=== PATIENT | male | born 1940 | race Caucasian/White ===

== ENCOUNTER 2016-08-13 15:24 | Inpatient (IN) | payer MEDICARE ==
--- NOTE | ~2016-08-13 | IDS ---
Interim Discharge Summary [facility] [address] [place]. [address] NAME: GURPREET STEWART : 42 STATUS : ADM IN PAT#: [id number] AGE: 76 ADM/REG DATE : 08/13/16 MR#: [id number] REPORT SERV DATE: 08/19/16 DICTATED BY: RIZWAN LOCKHART DATE: 08/19/16 REPORT STATUS : Draft TRANSCRIBED BY: MODL DATE: 08/19/16 ADMISSION DATE: 08/13/2016 DISCHARGE DATE: CURRENT HOSPITAL DIAGNOSES: 1. Dizziness, weakness, and forgetfulness. 2. History of coronary artery disease, pacer placement, and hypertension. CONSULTATIONS: Dr. Nunn, Neurology. PROCEDURES: 1. CT scan of the brain done on the 08/13/2016 showing no acute pathology, no old films for comparison. Generalized atrophy in the posterior fossa and brainstem. No ventricular shift. Generalized moderate atrophy including the brainstem and posterior cerebral hemispheres. 2. Carotid ultrasound done on the 08/15/2016 showing right carotid category 2 disease, moderate to highly vulnerable plaque on the right. Right vertebra was not identified, may be occluded or congenitally undeveloped. Left carotid is category 1. 3. 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 4. Cervical MRI ubgy-dz-rdmoqjwb encroachment of the left neural foramina at C4-5, C5-6, and C6-7, which could demonstrate clinically as intermittent irritation to the left 5, 6, or 7 nerve root. Cord is intact. Brainstem intact. 5. Spinal LP done on 08/16/2016. 6. Echocardiogram done on the 08/15/2016 showing technically difficult study due to poor acoustic windows, decreased LV systolic function, EF of 42%, apical akinesis, normal right ventricular chamber size and systolic function. No significant evidence of valvular regurgitation or stenosis. CURRENT PHYSICAL FINDINGS AND HISTORY OF PRESENT ILLNESS: Please see dictated H and P by myself. In brief, the patient is a 76-year-old male who was brought in by family as he was having difficulty getting out of bed secondary to dizziness, weakness, and seemed to be having some xpso-uj-raewhyol progressive dementia. Initial vital signs: BP was 132/76, temperature was 98.6, and he has been afebrile during his hospital stay. Initial laboratory showed a BMP with a K of 3.2. Procalcitonin of 0.2. LFTs showed mild elevation AST 70, ALT 80, and alkaline phosphatase 130. B12 was 374. Troponin was normal. Folate was 7.8. TSH was 3.0. T4 was 11.2. CRP was 118, repeated on the 08/16/2016 was 117. RA was 40. BNP, ammonia, and A1c were within normal limits as was lactate. was less than 1 to 40. Sjogren's anti-SSA and SSB are pending. HIV was negative. LP showed a high protein count of 51.1, otherwise unremarkable. CBC at admit was unremarkable. Sedimentation rate was elevated initially at 84, repeated at 87. RPR was negative. Urinalysis was negative. Blood cultures on the 08/13/2016: One was growing Staph. Gluten is negative Staph, probable contaminant, the other was negative. CSF has no growth at three days, negative for cryptococcus. Interim Discharge Summary [address] [address] NAME: GURPREET STEWART : 42 STATUS : ADM IN [facility]#: [id number] AGE: 76 ADM/REG DATE : 08/13/16 MR#: [id number] REPORT SERV DATE: 08/19/16 DICTATED BY: RIZWAN LOCKHART DATE: 08/19/16 REPORT STATUS : Draft TRANSCRIBED BY: SOO DATE: 08/19/16 HOSPITAL COURSE: The patient was admitted with clinical symptoms and CT findings. He was placed on SCDs as he states he is very sensitive to anticoagulants. Neurology was consulted. The above mentioned labs and radiographic studies were ordered. He was initially noted to be somewhat orthostatics, so metoprolol was cut in half. Neurology wanted to proceed with MRI. Pacemaker was found to be MRI compatible, but MRI was delayed coordinating with Radiology and [employer] to place his pacer in safe mode. He had no significant change in his clinical symptoms during his hospital stay. PT and OT were requested and have been working with the patient. He was tried on a three-day course of Solu-Medrol 250 beginning on the 08/17/2016. His only other clinical complaint during his hospital stay was headache. Currently awaiting Dr. Nunn's recommendations from his MRI. We will continue PT. We will await the final on his lab work. Disposition is pending above. His carotid may need further investigation given the vulnerable plaque. TLF/MODL Rizwan Lockhart M.D. / [id number] CC: Rizwan Lockhart M.D. UNKNOWN
--- NOTE | ~2016-08-13 | HP ---
History And Physical [place] [id number] [facility] [place]. [address] NAME: GURPREET STEWART : 42 STATUS : ADM IN PAT#: [id number] AGE: 76 ADM/REG DATE : 08/13/16 MR#: [id number] REPORT SERV DATE: 08/13/16 DICTATED BY: RIZWAN LOCKHART DATE: 08/13/16 REPORT STATUS : Draft TRANSCRIBED BY: MODL DATE: 08/13/16 DATE OF ADMISSION: 08/13/2016 CHIEF COMPLAINT: Dizziness, weakness, forgetfulness, and shortness of breath. HISTORY OF PRESENT ILLNESS: The patient is a 76-year-old male, history as per the patient and his family. He has a past history significant for heart block, he underwent in 2014 a pacemaker placement. He states he otherwise is reasonably healthy. 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 He does not recall the last appointment that he has had. He has had several appointments with his PCP with complaints of dizziness and weakness, loss of appetite, and undetermined amount of weight loss. He states he has been given several "dizzy pills" which have not helped. He apparently on had worsening of his episode and family has not been able to get him out of bed since, so they brought him to the emergency department. They have noted that he seems to be more dizzy than weak. He is able to walk a certain distance and then seems to be unsteady in his feet like he is "drunk." He has had several falls related to this. His dizziness seems to be mostly when he tries to ambulate. He is noted to have Antivert on his medication list here, uncertain what other medicines he might have gotten. He has also complained of decreased appetite. He has also complained of diarrhea and cough. After the interview with the patient, his son did tell me that he has also been having periods of forgetfulness. He gives an example of having forgot how to put on a short the other day. He is uncertain how long this has been going on, and how severe it has been. He is currently denying chest pain, palpitations, or any distinct cardiac symptoms. PAST MEDICAL HISTORY: He has had a pacemaker placement, and he has had a history of hypertension, coronary artery disease, he states that five-vessel bypass in the past. PAST SURGICAL HISTORY: As noted above. CURRENT MEDICATIONS: Per pharmacy list, allopurinol 300 mg, Goody powder, Prozac 40 mg, hydrochlorothiazide 25 mg, Antivert 25 mg, Lopressor 25 mg b.i.d. ALLERGIES: TO STATINS, BLOOD THINNERS, AND UNKNOWN GOUT MEDICATION. FAMILY HISTORY: Both parents . Father from lung cancer. Mother from old age. SOCIAL HISTORY: He is a social drinker, pack per day smoker. REVIEW OF SYSTEMS: HEENT: As covered in HPI. PULMONARY: He has had some cough. No fevers or chills. CARDIAC: As covered in HPI. GI: Positive for diarrhea. Otherwise, his 14-point review of systems is negative. PHYSICAL EXAMINATION: History And Physical [address] [address] NAME: GURPREET STEWART : 42 STATUS : ADM IN [facility]#: [id number] AGE: 76 ADM/REG DATE : 08/13/16 MR#: [id number] REPORT SERV DATE: 08/13/16 DICTATED BY: RIZWAN LOCKHART DATE: 08/13/16 REPORT STATUS : Draft TRANSCRIBED BY: SOO DATE: 08/13/16 VITAL SIGNS: BP 132/76, temperature 98.6, pulse 82, respirations 28, sat 95%. GENERAL: He is awake, alert, oriented, pleasant, in no acute distress. HEENT: Normocephalic, atraumatic. Sclerae nonicteric. NECK: Supple. HEART: Regular rate and rhythm without significant murmurs, gallops, or rubs. LUNGS: Clear to auscultation without rhonchi, rales, or wheezes. ABDOMEN: Nontender, nondistended. EXTREMITIES: Without edema. NEUROLOGICAL: Affect is grossly normal. Speech is normal. He follows commands. He does not seem to have any peripheral neurological deficits. Gait was not tested. LABORATORY DATA: Procalcitonin 0.12. BMP: Sodium 139, potassium 3.2, chloride 103, CO2 of 28. BUN and creatinine 11 and 0.81. AST 70, ALT 80, alkaline phosphatase was 130, total bilirubin was 1.9, lactate was 1.6. White count 7.8, hemoglobin and hematocrit of 14.5 and 42.2, platelets 192. Urinalysis showed positive urobilinogen at 4.0, otherwise unremarkable. Chest x-ray showed bibasilar atelectatic changes, small amount, nonspecific; pacemaker, and prior CABG changes noted and stable. CT scan of the brain: No acute pathology. No old films for comparison. There is moderate generalized atrophy with involvement of the posterior fossa and brainstem also identified. ASSESSMENT: Complaints noted above with a greater than one month history of dizziness, difficulty ambulating, possible forgetfulness, now with complaint of inability to get out of bed and frequent falls at home. PLAN: 1. The patient has been admitted. 2. We will consult Neurology given the changes of atrophy as posterior fossa and brainstem of undetermined etiology. I will request his records from Dr. Tejada. 3. We will check a BNP, echo, troponin, orthostatic blood pressures, B12, A1c, ammonia, folate. 4. We will try and ascertain if his pacer defibrillator is MRI compatible should that need to do so. We will check some stool studies. We will replace his potassium. ANNE/SOO Rizwan Lockhart M.D. / [phone]
--- NOTE | ~2016-08-13 | DS ---
Discharge Summary [facility] [address] [place]. [address] NAME: GURPREET STEWART : 42 STATUS : DIS IN PAT#: [id number] AGE: 76 ADM/REG DATE : 08/13/16 MR#: [id number] REPORT SERV DATE: 08/22/16 DICTATED BY: BA RENDON DATE: 08/21/16 REPORT STATUS : Draft TRANSCRIBED BY: MODL DATE: 08/21/16 ADMISSION DATE: 08/13/2016 DISCHARGE DATE: 08/21/2016 DISCHARGE DIAGNOSES: 1. Acute encephalopathy, improving. 2. Generalized weakness and ataxia. 3. Probable dementia. 4. Coronary artery disease. 5. Hypertension. CONSULTATIONS: 1. Neurology. 2. Vascular Surgery. HOSPITAL COURSE: This is a 76-year-old gentleman who was admitted with failure to thrive with worsening dizziness, generalized weakness, and forgetfulness. Please note, there is an intervention discharge summary by Dr. Miguel Angel Saldaña done on 08/19/2016. Please refer to his interim discharge summary for details. I assumed care of the patient on 08/20/2016, and patient is being discharged on 08/21/2016. The only addition is that the patient was seen by Vascular Surgery given the highly vulnerable plaque that was found on carotid ultrasound on the right. The patient will simply be followed as an outpatient basis per Vascular Surgery, and he has all appointments set up already. In the meantime, the patient has done extremely well with physical therapy and that patient is able to be discharged home to be with his and to be followed as an outpatient closely. DISPOSITION: Home. DISCHARGE MEDICATIONS: Please see med rec. FOLLOWUP: Please follow up with PCP in the next one to two weeks. A total of 30 minutes spent in coordinating this patient's discharge today. KRISS/SOO Ba Rendon MD / [id number] CC: Ba Rendon MD
--- NOTE | ~2016-08-13 | CN ---
Consultation Report [facility] [address] [place]. [address] NAME: GURPREET STEWART : 42 STATUS : ADM IN PAT#: [id number] AGE: 76 ADM/REG DATE : 08/13/16 MR#: [id number] REPORT SERV DATE: 08/14/16 DICTATED BY: DATE: REPORT STATUS : Draft TRANSCRIBED BY: MODL DATE: 08/14/16 NEUROLOGY CONSULTATION DATE OF CONSULTATION: 08/14/2016 REASON FOR CONSULT: Dizziness and gait abnormality. HISTORY OF PRESENT ILLNESS: This is a 76-year-old male who presented to [facility] secondary to progressive gait abnormality with the patient noted to have difficulty walking as well as undetermined amount of weight loss. The patient complained of dizziness and is unable to specify which type of dizziness that he has whether or not he feels like he has the room spinning sensation, vertigo-type of feeling or presyncopal sensation or combination of both. The patient's gait was described as drunk and previously, the patient has been given Antivert for gait abnormality. Unfortunately, the patient is otherwise unable to provide further details except for where he probably had gait abnormality ongoing for roughly about a year. The patient in addition was also noted to have memory difficulties according to the H and P and recent complaints of diarrhea and cough. PAST MEDICAL HISTORY: Significant for pacemaker placement. 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 It is unclear whether or not the pacemaker is MRI compatible. The patient in addition was also noted to have a history of hypertension and coronary artery disease, previous 5-vessel bypass surgery in the past. FAMILY HISTORY: Significant for lung cancer. It is unclear whether or not any members in his family has suffered from gait abnormality. The patient does have a history of alcohol usage, reports roughly two beers per day and reports a pack per day tobacco usage. REVIEW OF SYSTEMS: Otherwise negative except for those mentioned in the HPI. ALLERGIES: AT THE TIME OF EVALUATION, THE PATIENT WAS NOTED TO HAVE ALLERGY TO STATIN MEDICATIONS, WELL GOUT MEDICATION. HOME MEDICINES: Consists of allopurinol, Goody Powder, Prozac, hydrochlorothiazide, meclizine, Lopressor. PHYSICAL EXAMINATION: VITAL SIGNS: Overnight, the patient was noted to have vital signs with T-max of 98.9, heart rate of 72 to 100, respirations of 12 to 18, and blood pressure of 110 to 181 over 56 to 86. GENERAL: The patient is well developed, well nourished, in no acute distress. CARDIOVASCULAR: Regular rate and rhythm. No carotid bruits were otherwise auscultated. PULMONARY: Clear to auscultation bilaterally. NEUROLOGIC: The patient was noted to be alert and oriented to person, place. The patient Consultation Report [place] [id number] [facility] [place]. [address] NAME: GURPREET STEWART : 42 STATUS : ADM IN PAT#: [id number] AGE: 76 ADM/REG DATE : 08/13/16 MR#: [id number] REPORT SERV DATE: 08/14/16 DICTATED BY: DATE: REPORT STATUS : Draft TRANSCRIBED BY: MODL DATE: 08/14/16 is able to be oriented to year and month. The patient was noted to have mild decreased attention span. Intact registration but difficulty with recall. Mild dysarthria was noted. No aphasia appreciated. Cranial nerves 2 through 12. Pupils are equal, round, and reactive to light. Extraocular eye movement was noted but restricted vertical gaze movement at the time of evaluation. No clear nystagmus was otherwise seen. Yydce-mi-zhnamy response was noted to be equal. Symmetrical facial expression. Tongue was difficult to assess but appeared to be midline. Reports symmetrical sensation in bilateral face. Also, the patient was noted to have decreased hearing in bilateral ears. The patient does demonstrate 5/5 bilateral upper and lower extremity strength at the time of evaluation. Increased muscle tone was noted in bilateral upper extremity with rigidity. No clear resting tremor was seen. No posture or intention tremor was noted. No ataxia was seen on bmcxtw-jw-busg examination. Deep tendon reflex was 2+ throughout. Downgoing toe on bilateral plantar reflexes. No truncal ataxia was seen. The patient is able to stand with minimal assistance. Wide base gait was noted at time of evaluation with mild muscle ache and shuffling gait. Minimal ataxia was noted at the time of evaluation upon ambulation. LABORATORY STUDIES: Demonstrated white blood cell count of 7.8, hemoglobin of 14.5, hematocrit of 42.2, platelet count of 492. Chemistry panel: Sodium 141, potassium 3.4, chloride 105, bicarb 25, BUN of 9, creatinine 0.66, glucose of 94, calcium of 8.7, magnesium 2.2. Serum ammonia level 30, folate of 7.8, vitamin B12 level of 374, TSH is 3.06, hemoglobin A1c of 5.1. Urinalysis demonstrated negative leukocyte esterase, negative nitrites. CT scan of the brain demonstrated generalized atrophy with mild ventriculomegaly. Of note, the patient's CT scans also concern for possible brainstem atrophy as well as cerebral atrophy. IMPRESSION: Gait abnormality with the patient's CT scan demonstrated generalized atrophy with mild ventriculomegaly and possible cerebellar atrophy. The patient was noted to have positive orthostatic vitals and orthostasis and increased muscle rigidity, concern for possible normal-pressure hydrocephalus versus multiple systemic atrophy, cerebellar type versus possible spinal cerebellar atrophy. We will try to investigate whether or not the patient's pacemaker is MRI compatible. Meanwhile, we will start the patient on thiamine 100 mg p.o. daily as well as resume PT/OT. Case Management to arrange for rehab placement. If the pacemaker is MRI compatible, we will obtain MRI of the brain and C-spine. We will also consider large volume lumbar puncture for evaluation. RECOMMENDATION: 1. Thiamine 100 mg p.o. daily. 2. PT/OT. 3. We will investigate if the patient's pacemaker is MRI compatible. 4. If the pacemaker is MRI compatible, we would recommend MRI of the brain and C-spine without contrast. 5. We will consider large volume lumbar puncture. 6. Rehab. Consultation Report [address] [place]. [address] NAME: GURPREET STEWART : 42 STATUS : ADM IN [facility]#: [id number] AGE: 76 ADM/REG DATE : 08/13/16 MR#: [id number] REPORT SERV DATE: 08/14/16 DICTATED BY: DATE: REPORT STATUS : Draft TRANSCRIBED BY: MODL DATE: 08/14/16 [facility]/MODDanae Panchito Nunn MD / [id number] CC: Miguel Angel Saldaña M.D.
[2016-08-13 14:55] LABS: BASOPHILS 1.5 %; BASOPHILS ABSOLUTE 0.12 10/3/uL (0.0-0.16); EOSINOPHILS 1.4 %; EOSINOPHILS ABSOLUTE 0.11 10/3/uL (0.0-0.53); ER CBC TAT 0 Hrs 09 Mins; HEMATOCRIT 42.2 % (40.0-51.0); HEMOGLOBIN 14.5 g/dL (13.6-17.8); IMMATURE GRANULOCYTES 0.1 %; IMMATURE GRANULOCYTES ABSOLUTE 0.01 10/3/uL (0.0-0.11); LYMPHOCYTES 20.2 %; LYMPHOCYTES ABSOLUTE 1.57 10/3/uL (0.67-4.30); MEAN CORPUS HGB CONC 34.4 g/dL (32.0-36.0); MEAN CORPUSCULAR HEMOGLOB 33.5 pg (26.0-34.0); MEAN CORPUSCULAR VOLUME 97.5 fL (80-100); MEAN PLATELET VOLUME 10.1 fL (9.2-13.0); MONOCYTES 9.6 %; MONOCYTES ABSOLUTE 0.75 10/3/uL (0.21-1.20); NEUTROPHILS 67.2 %; NEUTROPHILS ABSOLUTE 5.23 10/3/uL (2.02-8.40); PLATELET COUNT 192 10/3/uL (150-400); RBC DISTRIBUTION WIDTH 13.2 % (12.0-16.0); RED CELL COUNT 4.33 10/6/uL (4.7-6.1); WHITE BLOOD CELLS 7.8 10/3/uL (4.5-10.5)
[2016-08-13 14:56] LABS: MANUAL DIFF NO %
[2016-08-13 15:02] LABS: INTERNATIONAL NORMAL RATI 1.2 UNITS (-); PARTIAL THROMBO TIME 34.9 SEC (22.5-37.2)
[2016-08-13 15:09] LABS: A/G RATIO 0.6 (0.7-1.9); ALBUMIN 2.9 G/DL (3.5-5.0); ALKALINE PHOSPHATASE 130 U/L (45-117); BUN (BLOOD UREA NITROGEN) 11 MG/DL (6-23); CALCIUM, SERUM 8.8 MG/DL (8.5-10.4); CHLORIDE, SERUM 103 MMOL/L (96-112); CO2 (CARBON DIOXIDE) 28 MMOL/L (24-34); CREATININE 0.81 MG/DL (0.70-1.30); GFR AFRICAN AMERICAN 101 ML/MIN (>=60); GFR NON AFRICAN AMERICAN 87 ML/MIN (>=60); GLOBULIN 4.6 G/DL (2.5-4.1); GLUCOSE, SERUM 104 MG/DL (60-99); POTASSIUM, SERUM 3.2 MMOL/L (3.5-5.3); SGOT(AST) 70 U/L (5-40); SGPT(ALT) 80 U/L (5-65); SODIUM, SERUM 139 MMOL/L (135-148); TOTAL BILIRUBIN 1.9 MG/DL (0-1.2); TOTAL PROTEIN 7.5 G/DL (6.0-8.5)
[2016-08-13 15:15] LABS: LACTATE 1.6 MMOL/L (0.3-2.4)
[~2016-08-13 15:24] MED LIST: ASAB PO; COLCRYS0.6 MG PO; GOODY'S HEADAC1 EACH PO; LOP25 PO; PROZAC40 MG PO; Z300 PO; ZIAC10 PO
[2016-08-13 16:03] LABS: PROCALCITONIN 0.12 ng/mL (<0.5)
[2016-08-13 16:41] LABS: ASCORBIC ACID (UR NOT ORDER) 20 (NEG); BILIRUBIN, URINE SMALL (NEG); ER URINALYSIS TAT 0 Hrs 13 Mins; KETONE, URINE NEGATIVE (NEG); LEUKOCYTE ESTERASE(NOT OR NEG (NEG); NITRITE (URINE) NEG (NEG); WBC (NOT ORDERED) (RFLEX) 5 (0-5)
[2016-08-13] MEDS ORDERED: PROZAC40 MG PO (17:52)
[2016-08-13] MEDS ORDERED: LOP25 PO (17:54)
[2016-08-13] MEDS ORDERED: HYDROCHLOROT25 MG PO (17:59)
[2016-08-13] MEDS ORDERED: Z300 PO (18:00)
[2016-08-13] MEDS ORDERED: GOODY'S EX-STR1 EAC1 PO (18:00)
[2016-08-13] MEDS ORDERED: MCZ25 PO (18:00)
[2016-08-13 21:35] LABS: B NATRIURETIC PEPTIDE (BNP) 55.9 PG/ML (< 100.0)
[2016-08-13 21:49] LABS: TROPONIN I <0.02 NG/ML (<0.05)
[2016-08-13 21:55] LABS: FOLATE 7.8 NG/ML (>5.2)
[2016-08-13 22:10] LABS: GLYCOHEMOGLOBIN (HbA1c) 5.1 % (4.7-6.1)
[2016-08-14 05:58] LABS: BUN (BLOOD UREA NITROGEN) 9 MG/DL (6-23); CALCIUM, SERUM 8.7 MG/DL (8.5-10.4); CHLORIDE, SERUM 105 MMOL/L (96-112); CO2 (CARBON DIOXIDE) 25 MMOL/L (24-34); CREATININE 0.66 MG/DL (0.70-1.30); GFR AFRICAN AMERICAN 110 ML/MIN (>=60); GFR NON AFRICAN AMERICAN 95 ML/MIN (>=60); GLUCOSE, SERUM 94 MG/DL (60-99); POTASSIUM, SERUM 3.4 MMOL/L (3.5-5.3); SODIUM, SERUM 141 MMOL/L (135-148)
[2016-08-16 10:24] LABS: ANA TITER <1:40 TITER
[2016-08-16 12:33] LABS: CSF APPEARANCE (NOT ORD) CLEAR (CLEAR); CSF COLOR (NOT ORD) COLORLESS (COLORLESS); CSF XANTHROCHROMIA NEG (NEG)
[2016-08-16 12:51] LABS: CSF BASO 0 % (NO REF RANGE); CSF EOS 0 % (0-1); CSF LYMPH (NOT ORD) 60 % (28-96); CSF MONO 40 % (16-56); CSF RBC (NOT ORD) 0 MM3 (NO REFERENCE); CSF SEGS (NOT ORD) 0 % (0-7); CSF WBC (NOT ORD) 2 /uL (0-10)
[2016-08-16 12:53] LABS: TOTAL PROTEIN, CSF 51.1 MG/DL (15-45)
[2016-08-17 17:03] LABS: ANGIOTENSIN-CONVERTING ENZYME 36 U/L (4-60)
[2016-08-19 16:00] LABS: ANCA <1:20 (()); MYELOPEROXIDASE ANTIBODY <0.2 AI (<1.0); PROTEINASE 3 ANTIBODY <0.2 AI (<1.0)
[2016-08-19 18:05] LABS: HSV DNA TYPE 1 Not Detected (NOTDET); HSV DNA TYPE 2 Not Detected (NOTDET)
[2016-08-20 07:19] LABS: BASOPHILS 0.1 %; BASOPHILS ABSOLUTE 0.01 10/3/uL (0.0-0.16); EOSINOPHILS 0 %; HEMATOCRIT 39.5 % (40.0-51.0); HEMOGLOBIN 13.5 g/dL (13.6-17.8); IMMATURE GRANULOCYTES 0.3 %; IMMATURE GRANULOCYTES ABSOLUTE 0.04 10/3/uL (0.0-0.11); LYMPHOCYTES 5.8 %; MEAN CORPUS HGB CONC 34.2 g/dL (32.0-36.0); MEAN CORPUSCULAR HEMOGLOB 34.4 pg (26.0-34.0); MEAN PLATELET VOLUME 10.1 fL (9.2-13.0); MONOCYTES 1.6 %; MONOCYTES ABSOLUTE 0.22 10/3/uL (0.21-1.20); NEUTROPHILS 92.2 %; NEUTROPHILS ABSOLUTE 12.77 10/3/uL (2.02-8.40); RBC DISTRIBUTION WIDTH 12.7 % (12.0-16.0); RED CELL COUNT 3.93 10/6/uL (4.7-6.1)
[2016-08-20 07:20] LABS: MANUAL DIFF NO %; MEAN CORPUSCULAR VOLUME 100.5 fL (80-100); PLATELET COUNT 427 10/3/uL (150-400); WHITE BLOOD CELLS 13.8 10/3/uL (4.5-10.5)
[2016-08-20 07:45] LABS: BUN (BLOOD UREA NITROGEN) 21 MG/DL (6-23); CHLORIDE, SERUM 108 MMOL/L (96-112); CO2 (CARBON DIOXIDE) 25 MMOL/L (24-34); CREATININE 0.68 MG/DL (0.70-1.30); GFR AFRICAN AMERICAN 108 ML/MIN (>=60); GFR NON AFRICAN AMERICAN 93 ML/MIN (>=60); GLUCOSE, SERUM 117 MG/DL (60-99); POTASSIUM, SERUM 4.2 MMOL/L (3.5-5.3); SODIUM, SERUM 142 MMOL/L (135-148)
[2016-08-20 10:56] LABS: ANTI SS-A NEGATIVE (NEGATIVE)
[2016-08-20 11:26] LABS: ANTI SS-B NEGATIVE (NEGATIVE)
[2016-08-21 09:35] LABS: ALBUMIN INDEX 9.8 ratio (0.0-9.0); CSF IGG SYNTHESIS RATE <0.0 mg/d (0.0-8.0); CSF IGG/ALBUMIN RATIO 0.15 ratio (0.09-0.25); CSF OLIGOCLONAL BANDS Positive (NEG); CSF OLIGOCLONAL BANDS NUMBER 2 Bands (0-1); IGG INDEX 0.29 ratio (0.28-0.66); IMMUNOGLOBULIN G, SERUM 1490 mg/dL (768-1632)
[2016-08-21] MEDS ORDERED: ASAB PO (12:33)
== END 2016-08-21 14:31 | disposition home or self-care (01) | DRG 71 ==
LOC: ER 15:24 → 4SO 19:07
PROVIDERS: Emergency Medicine; Internal Medicine; Psychiatry & Neurology Neurology
PROC: 009U3ZX Drainage of Spinal Canal, Percutaneous Approach, Diagnostic (ICD-10-PCS; principal; 2016-08-16)
DX: G93.49 Other encephalopathy (principal); I50.22 Chronic systolic (congestive) heart failure; G31.89 Other specified degenerative diseases of nervous system; I11.0 Hypertensive heart disease with heart failure; F02.80 Dementia in other diseases classified elsewhere, unspecified severity, without behavioral disturbance, psychotic disturbance, mood disturbance, and anxiety; R42 Dizziness and giddiness; Z23 Encounter for immunization; Z95.810 Presence of automatic (implantable) cardiac defibrillator; I25.10 Atherosclerotic heart disease of native coronary artery without angina pectoris; I95.1 Orthostatic hypotension; R26.9 Unspecified abnormalities of gait and mobility; Z95.1 Presence of aortocoronary bypass graft; Z72.89 Other problems related to lifestyle; F17.210 Nicotine dependence, cigarettes, uncomplicated; Z88.8 Allergy status to other drugs, medicaments and biological substances; R53.1 Weakness; R62.7 Adult failure to thrive; R51 Headache; Z91.81 History of falling; I65.21 Occlusion and stenosis of right carotid artery
CPT/HCPCS: 62270; 70450; 70551; 71010; 72141; 77003; 80048; 80053; 81001; 82040; 82042; 82140; 82164; 82607; 82746; 82784; 82784-59; 82945; 82947; 83036; 83516; 83516-59; 83605; 83735; 83873; 83880; 83916; 84132; 84145; 84157; 84443; 84446; 84484; 85025; 85610; 85652; 85730; 86039; 86140; 86235; 86235-59; 86255; 86256; 86256-59; 86431; 86592; 87040; 87070; 87205; 87327; 87389; 87529; 87529-59; 89051; 90662; 92610-GN; 93005; 93880; 97110-GP; 97116-GP; 97161-GP; 97530-GP; 99285; A9270-GY; C8929; G0008; J2930; Q9957